=== PATIENT | female | born 1960 | race Two or more races ===

== ENCOUNTER 2023-01-27 18:25 | Emergency (ER) | payer OTHER ==
[~2023-01-27] VITALS: Ht 162.6 cm; Wt 68.0 kg
[2023-01-27] MEDS ORDERED: ECOTRIN81 MG PO (18:44)
[2023-01-27] MEDS ORDERED: COZAAR100 MG PO (18:44)
[2023-01-27] MEDS ORDERED: TOPROL XL50 M1 PO (18:44)
[2023-01-27] MEDS ORDERED: LIPITOR40 M1 PO (18:45)
[2023-01-27] MEDS ORDERED: ISOSORBIDE MONO60 MG PO (18:46)
[2023-01-27] MEDS ORDERED: ESCITALOPRA5 MG/5 ML (18:46)
== END 2023-01-27 23:13 | disposition home or self-care (01) ==
LOC: ER 18:25
DX: T58.8X1A Toxic effect of carbon monoxide from other source, accidental (unintentional), initial encounter (principal); Y93.89 Activity, other specified; Y92.813 Airplane as the place of occurrence of the external cause; I10 Essential (primary) hypertension; I25.10 Atherosclerotic heart disease of native coronary artery without angina pectoris